=== PATIENT | male | born 1960 | race Caucasian/White ===

== ENCOUNTER → 2021-02-01 13:00 | Outpatient (BNVA) | payer SELFPAY | PROVIDERS: Visit Provider Internal Medicine | DX: Z02.79 Encounter for issue of other medical certificate (principal) ==

== ENCOUNTER → 2022-01-28 13:05 | Outpatient (BNVA) | payer SELFPAY | PROVIDERS: Visit Provider Internal Medicine | DX: Z02.79 Encounter for issue of other medical certificate (principal) ==

== ENCOUNTER 2022-08-22 11:55 | Emergency (ER) | payer OTHER, SELFPAY ==
[2022-08-22 12:13] VITALS: BP 131/88; PULSE 70; O2SAT 97; BMI 25.0
--- NOTE | 2022-08-22 12:13 | ED_ITS ---
HPI - Extremity Injury (Lower) General Chief Complaint: Extremity Problem Stated Complaint: R knee pain Time Seen by Provider: 08/22/22 12:08 Source: patient Mode of arrival: ambulatory Limitations: no limitations History of Present Illness HPI Narrative: 62 yo male here with right knee pain x months. Patient reports he was walking and felt a popping sensation in the right knee ever since then he has had months of pain. Pain is normally when he is walking. Sometimes he feels like the knee is unstable and is going to give out on him. Seen at [facility] 07/2022 and had negative x-rays, ultrasound. Patient recommended to take ibuprofen and follow up with his primary care. Patient reports he did not have a primary care so he was able to get an appointment in November with a new one. He reports he has been in unable to work due to the pain in his right knee. He is here because he wants to be seen by a primary care or specialist sooner. Denies any numbness, tingling, redness, warmth, swelling of the extremity Review of Systems Review of Systems: Yes all other systems are reviewed and are negative Constitutional: Constitutional: Reports no additional constitutional complaints, Denies body ache(s), Denies chills, Denies fever(s), Denies headache(s) and Denies weakness Eyes: Eyes: Reports no additional eye complaints and Denies change in vision ENT: Reports system reviewed and no additional complaints, except as documented, Denies dizziness, Denies headache(s), Denies nasal congestion, Denies nasal discharge and Denies neck pain Cardiovascular: Cardiovascular: Reports no additional cardiovascular complaints, Denies chest pain, Denies leg edema and Denies dyspnea Respiratory: Respiratory: Reports no additional respiratory complaints, Denies cough and Denies dyspnea Gastrointestinal: Gastrointestinal: Reports no additional gastrointestinal complaints, Denies abdominal pain, Denies diarrhea, Denies nausea and Denies vomiting Genitourinary: Genitourinary: Denies urinary incontinence Musculoskeletal: Musculoskeletal: Reports no additional musculoskeletal complaints, Denies back pain, Reports arthralgias, Denies joint swelling, Denies limited range of motion, Denies neck pain, Denies numbness and Denies tingling Integumentary/Breasts: Skin/Breast: Reports system reviewed and no additional complaints, except as docu and Denies rash Neurologic: Reports system reviewed and no additional complaints, except as d ocumented, Denies Abnormal speech present, Denies dizziness, Denies headache(s), Denies numbness, Denies tingling and Denies weakness PMFSH Past Medical History Attestation statement: The following information was validated with the patient. Source: old records reviewed and nursing notes reviewed Social History Social History Advance Directives: No Advance Directives Information Provided: Yes Physical Exam Vital Signs: Vital Signs: Last Vital Signs Pulse 70 08/22/22 12:13 BP 131/88 08/22/22 12:13 Pulse Ox 97 08/22/22 12:13 O2 Del Method 08/22/22 12:13 BMI result Body Mass Index 25.0 Const: General: cooperative, healthy appearing, comfortable and no acute distress Orientation/consciousness: patient oriented x3 Limitations: no limitations HEENT: Head: Yes normal to inspection Ears: hearing grossly normal bilaterally General nose exam: Normal external nose present Face and sinus: Yes normal facial exam Mouth: Normal oral and palatal mucosa present Throat: Yes posterior oropharynx normal Eyes: General: appearance normal, both eyes and all related structures Pupils: Equal, round and reactive pupils present Neck: Neck: Yes normal visual inspection Chest: Chest palpation & inspection: normal inspection of the chest Resp: Effort & Inspection: normal respiratory effort Auscultation: clear to auscultation bilaterally Cardio: Rate: regular rate Rhythm: regular rhythm Peripheral pulses: Peripheral pulses 2+ throughout GI: Inspection: Yes normal to inspection Palpation (GI): Soft to palpation and nontender Auscultation: normal bowel sounds Back/Spine/Pelvis: Thoracic/Lumbar Spine: thoracic and lumbar spine normal to inspection Skin: General skin exam: no rashes or lesions noted Neuro: General: patient oriented x3, no focal motor deficits and normal sensation to monofilament Cranial nerves: Yes Equal, round and reactive pupils present Cognition (Neuro): normal cognition Speech: No Abnormal speech present Gait exam (Neuro): Normal gait present Motor exam (neuro): 5/5 motor strength present throughout Extrem: Other: There is tenderness to the right lateral and anterior knee with slight swelling noted laterally. There is no redness, warmth. No posterior knee pain or calf pain. Full range of motion of the right knee. No ligamental laxity. Negative anterior drawer. Palpable distal pulses (2+ DP/PT) noted. General: Yes normal to inspection Medical Decision Making Medical Decision Making MDM Narrative: 62-year-old male here with right knee pain/instabilty after a popping sensation 2 weeks ago. No fall to the ground or additional injury or trauma. Patient reports outpatient x-rays at [facility] which were negative for any fracture. Patient reports continued pain, continued instability and unable to work. On exam patient with tenderness over anterior and lateral right knee with no ligamental laxiety w/ slight swelling, FROM. No warmth, redness on exam. May have ligamental strain/injury, meniscus injury. May need to see orthopedics outpatient for advanced imaging. Not warranted in the ER setting. Patient is trying to follow-up with primary care for unable to get an appointment until November. Patient is here because he would like assistance in getting a primary care sooner or orthopedic. Patient has [employer] insurance. Patient may need a referral from his primary care to see Orthopedics. I recommended he check with his insurance to check this. He should also speak to his primary care and asked to be placed on a cancellation list and or ask for referral prior to being seen. Recommend continue rice, NSAIDs. Differential Diagnosis Differential Diagnoses: The differential diagnosis associated with the presentation includes Ligamental injury, strain, sprain Low concern for septic joint (no fever, redness, FROM). Low concern for fracture. Independent Historian Clinical information obtained from an independent historian. History obtained from or confirmed by: Spouse Tests considered The following testing was considered but not selected: No need for additional x-rays as patient had x-ray 1 month ago which was negative for any acute fracture and he denies any additional injury or trauma. This was discussed with the patient who agrees with plan of care. Discharge Plan Discharge Clinical Impression: Right knee sprain Patient Disposition: Home, Self-Care Instructions: Knee Sprain (ED) Additional Instructions: You will likely need to see orthopedic doctor. You may require referral from your insurance prior to seeing orthopedics. Call your insurance and find out if this is required. If they do not require a referral then you can call Orthopedics to make an appointment. If they do require a referral that I would call your primary care doctor in see if they are able to send over referral before your appointment in November Continue rest, ice, elevation and ibuprofen for pain Interventions: ED Discharge Assessment Last Done: 08/22/22 12:54
--- NOTE | 2022-08-22 12:30 | PC.NURSE ---
pt c/o r knee pain x2 months. he said he was seen at [facility] July 2022 for the same problem but they did not find anything wrong with his knee. he reports taking ibuprofen but it did not help. he says that his knee is a little swollen now and it was not before. he denies any other symptoms.
--- NOTE | 2022-08-22 13:00 | PC.NURSE ---
this publications writer went into pt's room to give him discharge papers and instructions, pt had his cell phone on speaker and asked his friend to ask this publications writer why can't we fix his knee . this publications writer stated the provider spoke with the pt and gave him discharge instructions . the friend started yelling at this publications writer and stated to the pt refuse to leave until they tell you what is wrong with your knee do not leave the room . the pt took his discharge papers and left, stated thank you . pt was accompanied by his .
== END 2022-08-22 12:56 | disposition home or self-care (01) ==
PROVIDERS: Emergency Provider Emergency Medicine
DX: S83.91XA Sprain of unspecified site of right knee, initial encounter (principal); X58.XXXA Exposure to other specified factors, initial encounter; Y93.9 Activity, unspecified; Y92.9 Unspecified place or not applicable
CPT/HCPCS: 99282

== ENCOUNTER → 2022-12-26 08:37 | Outpatient (BNVA) | payer SELFPAY | PROVIDERS: Visit Provider Internal Medicine | DX: Z02.79 Encounter for issue of other medical certificate (principal) ==

== ENCOUNTER → 2023-12-21 10:40 | Outpatient (BNVA) | payer SELFPAY | PROVIDERS: Visit Provider Physician Assistant Medical | DX: Z02.79 Encounter for issue of other medical certificate (principal) ==

== ENCOUNTER → 2024-12-27 09:02 | Outpatient (BNVA) | payer SELFPAY | PROVIDERS: Visit Provider Physician Assistant Medical | DX: Z02.79 Encounter for issue of other medical certificate (principal) ==